=== PATIENT | male | born 1945 | race Caucasian/White ===

== ENCOUNTER 2019-06-03 10:03 | Emergency (ER) | payer MEDICARE ==
[~2019-06-03] VITALS: Ht 164.6 cm; Wt 93.0 kg
[2019-06-03 10:12] VITALS: BP 171/91
--- NOTE | 2019-06-03 10:19 | NUR ---
73 Y/O M C/C LLE PAIN 10/10, TINGLING SENSATION. 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 PER PT WAS TOLD BY PCP TO GO TO ER FOR ANY S/S NOTED. PT HERE FOR PAIN CONTROL, NO OTHER C/C NOTED. NKA. NO N/V/D. SIDE RAIL X1. FAMILY AT BEDSIDE. PT AMBULATED TO BED. ROM/CMS WDL LLE.
--- NOTE | 2019-06-03 10:20 | NUR ---
amb to bed 05
--- NOTE | 2019-06-03 10:36 | NUR ---
PT RESTING IN BED, SIDE RAIL X1
[2019-06-03] MEDS ORDERED: ONDANSETRON 4 MG ODT PO ONE (11:10)
[2019-06-03] MEDS ORDERED: HYDROcodone/APAP 5/325 MG 1 TAB TAB PO ONE (11:10)
--- NOTE | 2019-06-03 11:34 | NUR ---
PT TAKEN TO CT VIA WHEELCHAIR
--- NOTE | 2019-06-03 11:52 | NUR ---
PT RESTING IN BED, SIDE RAIL X1
--- NOTE | 2019-06-03 12:52 | NUR ---
PT RESTING IN BED, SIDE RAIL X1
[2019-06-03 13:29] VITALS: BP 156/80
== END 2019-06-03 13:29 | disposition home or self-care (01) ==
LOC: EDBD 10:03 → MED 10:03
DX: M54.32 Sciatica, left side (principal); Z85.46 Personal history of malignant neoplasm of prostate; Z85.830 Personal history of malignant neoplasm of bone
CPT/HCPCS: 72131; 72192; 73552; 99285; Q0162